=== PATIENT | female | born 1990 | race Caucasian/White ===

== ENCOUNTER 2018-04-01 04:19 | Emergency (ER) | payer MEDICAID, SELFPAY ==
[~2018-04-01] VITALS: Ht 165.1 cm; Wt 67.0 kg
[2018-04-01] MEDS ORDERED: CEFTRIAXONE 250 MG ONE (04:55)
[2018-04-01] MEDS ORDERED: AZITHROMYCIN 250 MG TABLET ONE (04:56)
[2018-04-01] MEDS ORDERED: AZITHROMYCIN 500 MG TABLET PO ONE (05:00)
[2018-04-01] MEDS ORDERED: CEFTRIAXONE 250 MG IM ONE (05:00)
[2018-04-01 05:11] LABS: MICROSCOPIC NOT IND
[2018-04-01 05:22] LABS: CULTURE INDICATED? NO
[2018-04-01 05:26] LABS: BASOPHILS # (AUTO) 0.08 x10^3/uL (0-0.1); BASOPHILS % (AUTO) 1 % (0-1); EOSINOPHILS # (AUTO) 0.14 x10^3/uL (0-0.4); EOSINOPHILS % (AUTO) 2 % (1-7); LYMPHOCYTES # (AUTO) 1.89 x10^3/uL (1-3.4); LYMPHOCYTES % (AUTO) 26 % (22-44); MD NO; MEAN CORPUSCULAR HEMOGLOBIN 30.6 pg (27.0-34.8); MEAN CORPUSCULAR HGB CONC 34.3 g/dL (32.4-35.8); MEAN CORPUSCULAR VOLUME 89.2 fL (80-100); MEAN PLATELET VOLUME 7.8 fL (7.4-10.4); MONOCYTES # (AUTO) 0.46 x10^3/uL (0.2-0.8); MONOCYTES % (AUTO) 6 % (2-9); NEUTROPHILS # (AUTO) 4.64 x10^3/uL (1.8-6.8); NEUTROPHILS % (AUTO) 64 % (42-75); PLATELET COUNT 316 x10^3/uL (130-400); RED BLOOD COUNT 4.76 x10^6/uL (3.82-5.3); RED CELL DISTRIBUTION WIDTH 13.2 % (9.6-15.2)
[2018-04-01 05:33] LABS: ALBUMIN 3.8 g/dL (3.4-5.0); ANION GAP 7 mmol/L (5-15); CHLORIDE 106 mmol/L (98-107)
[2018-04-01 05:40] LABS: CREATININE 0.71 mg/dL (0.55-1.02)
[2018-04-01 05:47] VITALS: BP 127/88
== END 2018-04-01 06:09 | disposition home or self-care (01) ==
LOC: ED 04:48
DX: A56.09 Other chlamydial infection of lower genitourinary tract (principal); A54.03 Gonococcal cervicitis, unspecified
CPT/HCPCS: 36415; 76830; 80048; 81003; 82040; 84703; 85025; 87491; 87591; 96372; 99285; J0696